=== PATIENT | female | born 1970 | race African-American/Black ===

== ENCOUNTER → 2021-02-01 11:17 | Outpatient (CLI) | payer BC, SELFPAY ==
--- NOTE | ~2021-02-01 | US_ITS ---
EXAMINATION: US transvaginal EXAM DATE: 02/01/2021 11:50 INDICATION: N94.6 - Dysmenorrhea, unspecified. TECHNIQUE: Pelvic transvaginal sonogram was performed. There are multiple grayscale and Doppler imag es available for interpretation. There is no prior study for comparison. FINDINGS: Uterus measures 8.2 x 5.7 x 7.0 cm, is retroverted and with 1.7 cm fibroid anteriorly. En dometrial stripe measures 9 mm, within normal limits. There is no free pelvic fluid. Right adnexa: The ovary measures 2.7 x 2.1 x 1.7 cm and is morphologically normal. Ovarian vascular f low confirmed. Left adnexa: The ovary measures 3.7 x 2.9 x 2.7 cm and is morphologically normal. Ovarian vascular fl ow confirmed. IMPRESSION: Small fibroid Reviewed, dictated and finalized at location B. IMPRESSION: Small fibroid
== END ==
PROVIDERS: PCP Family Medicine; Visit Provider Family Medicine
DX: N94.6 Dysmenorrhea, unspecified (principal); D25.9 Leiomyoma of uterus, unspecified
CPT/HCPCS: 76830

== ENCOUNTER → 2022-08-02 10:21 | Outpatient (CLI) | payer BC, SELFPAY ==
--- NOTE | ~2022-08-02 | MM_ITS ---
EXAMINATION: MM screening álvaro BI w luis HISTORY: Screening TECHNIQUE: Craniocaudal and mediolateral oblique 3-D tomosynthesis images were obtained and synthetic 2-D images were generated. CAD analysis was submitted and interpreted. COMPARISON: Comparison to multiple prior studies sequentially, with oldest reviewed study dated 09/24. BREAST PARENCHYMAL COMPOSITION: There are scattered areas of fibroglandular density. FINDINGS: There is no evidence of suspicious mass, calcification, or architectural distortion to sugg est malignancy in either breast. There has been no suspicious interval change. IMPRESSION: 1. No mammographic evidence of malignancy. 2. Recommend routine screening mammography in one year. BI-RADS Category 1: Negative Reviewed, dictated and finalized at location B. Y MANUFACTURING TECHNOLOGIST
== END ==
PROVIDERS: PCP Family Medicine; Visit Provider Family Medicine
DX: Z12.31 Encounter for screening mammogram for malignant neoplasm of breast (principal)
CPT/HCPCS: 77063; 77067

== ENCOUNTER 2023-06-13 10:48 | Outpatient (CLI) | payer BC, SELFPAY ==
--- NOTE | ~2023-06-13 | US_ITS ---
EXAMINATION: US transvaginal DATE: 06/13/2023 11:28 INDICATION: N94.6 - Dysmenorrhea, unspecified TECHNIQUE: Multiple transabdominal and endovaginal sonographic images of the pelvis were obtained. COMPARISON: 02/01/2021. FINDINGS: Uterus: 7.3 x 5.5 x 5.8 cm. Retroverted uterus. Heterogeneous uterine parenchyma, indistinct endometr ial margins. 1.4 cm segment focal area of heterogeneous echogenicity within uterine parenchyma, myome trial location more clearly delineated in the prior study. Endometrial complex measures 6 mm. Right Ovary: 3.2 x 3.3 x 2.5 cm. Vascular flow is present. 2.4 cm anechoic cyst with a thin avascular septum, versus 2 adjacent simple cysts. Left Ovary: 3.4 x 2.0 x 2.3 cm. Vascular flow is present. There is no free fluid in the pelvis. IMPRESSION: Heterogeneous focus in the uterine parenchyma, likely myometrial fibroid. Heterogeneous uterine parenchyma as can be seen with adenomyosis. 2.4 cm right ovarian cyst with a thin septum, versus 2 adjacent simple cysts. Consider follow-up afte r appropriate cycling. Reviewed, dictated and finalized at location K. CAL VOUCHER CLERK IMPRESSION: Heterogeneous focus in the uterine parenchyma, likely myometrial fibroid. Heterogeneous uterine parenchyma as can be seen with adenomyosis. 2.4 cm right ovarian cyst with a thin septum, versus 2 adjacent simple cysts. C onsider follow-up after appropriate cycling.
== END 2023-06-13 10:49 ==
LOC: MICIMG 10:49
PROVIDERS: PCP Family Medicine; Visit Provider Family Medicine
DX: N94.6 Dysmenorrhea, unspecified (principal); N85.2 Hypertrophy of uterus; N83.201 Unspecified ovarian cyst, right side
CPT/HCPCS: 76830

== ENCOUNTER 2023-08-22 01:13 | Day surgery (SDC) | payer BC, SELFPAY ==
[2023-08-14 10:14] VITALS: BMI 29.9
--- NOTE | 2023-08-20 10:09 | SUR.PREOP ---
Patient called regarding upcoming procedure. Voicemail left regarding appointment times.
[2023-08-22 09:40] VITALS: BP 117/81; PULSE 70; RESP 16; TEMP 36.4; O2SAT 100; BMI 30.4
[2023-08-22] MEDS: LACTATED RINGERS 1,000 ML 150 ML IV CONT (10:04)
--- NOTE | 2023-08-22 10:21 | P.PNAN_ITS ---
Anes - Initial Pre Proc Eval Procedure: Operation Date: 08/22/23 11:00 Proposed Procedures p Screening Colonoscopy - Donovan Marin MD Date/Time: 08/22/23 10:21 Surgeon: Donovan Marin MD Pre Op Diagnosis: neoplasm screening Patient Data Age: 53 Gender: F Height: 1.65 m Weight: 83 kg Last Vital Signs Temp 97.6 F 08/22/23 09:40 Pulse 70 08/22/23 09:40 Resp 16 08/22/23 09:40 BP 117/81 08/22/23 09:40 Pulse Ox 100 08/22/23 09:40 O2 Del Method Room Air 08/22/23 09:40 Allergies Allergy/AdvReac Type Severity Reaction Status Date / Time No Known Allergies Allergy Mild Verified 08/22/23 09:49 Home Medications Medication Instructions Recorded Confirmed Type amlodipine 10 mg tablet See Rx Instructions .Route 12/09/22 08/22/23 Rx .COMPLEX #90 tabs labetalol 100 mg tablet See Rx Instructions .Route 03/09/23 08/22/23 Rx .COMPLEX #270 tabs topiramate 25 mg tablet See Rx Instructions .Route 07/24/23 08/22/23 Rx .COMPLEX #90 tabs Patient hx anesthesia problems: none Family hx anesthesia problems: none Results Review: All pre-operative results and documents have been reviewed as part of the pre- operative evaluation. [facility] Past Medical History Medical History Hypertension Migraine Family History Family History Grandparent Hypertension Grandparent Hypertension Social History Social History Smoking status: Never smoker Second hand tobacco smoke exposure: No Alcohol intake: current Drinks per week: 1 Alcohol use details: DRINKS OCCASIONALLY Substance use: never Substance use type: does not use Lack of Transportation: No Lack of Food: Never True Current Housing: I Have Housing Concerned About Future Housing: No Difficulty Paying Gas/Electric Bills: No Difficulty Paying for Meds: No Currently Unemployed: No Education: Master's Degree or Higher Difficulty w/ Childcare or Family Care: No Living arrangements: with family Gender identity (if verbalized by the patient): Female Spiritual care concerns: No Agree to blood products: Yes Anes - Eval Final PreProcedure Day of Procedure 08/22/23 10:21 Patient weight: obese Heart: regular rate and rhythm Lungs: clear to auscultation Airway: Mallampati scale Neurological: alert and oriented Last oral intake: >/= 8 hours ASA classification: II Emergent: no Anesthetic plan: proceed Anesthesia type and monitoring: general GIVS and standard monitoring Results Review: All pre-operative results and documents have been reviewed as part of the pre- operative evaluation. Informed Consent: The patient's anesthetic plan and its attendant risks and benefits were discussed with the patient/family/POA. Questions were solicited and answers provided to the satisfaction of the patient/family/POA.
--- NOTE | 2023-08-22 10:43 | PM.HPGS ---
History of Present Illness History of Present Illness Consent: Risks, benefits, and alternatives have been discussed and questions answered. Patient agrees to proceed with procedure. Chief complaint: neoplasm screening Narrative: Yasmeen Plata is a 53 year old female here for first screening colonoscopy Review of Systems Review of Systems: All systems reviewed & are unremarkable except as noted in HPI and below PMFSH Past Medical History Medical History (Updated 08/22/23 @ 10:44 by Donovan Marin MD) Colon cancer screening Hypertension Migraine Family History Family History Grandparent Hypertension Grandparent Hypertension Social History Social History Smoking status: Never smoker Second hand tobacco smoke exposure: No Alcohol intake: current Drinks per week: 1 Alcohol use details: DRINKS OCCASIONALLY Substance use: never Substance use type: does not use Lack of Transportation: No Lack of Food: Never True Current Housing: I Have Housing Concerned About Future Housing: No Difficulty Paying Gas/Electric Bills: No Difficulty Paying for Meds: No Currently Unemployed: No Education: Master's Degree or Higher Difficulty w/ Childcare or Family Care: No Living arrangements: with family Gender identity (if verbalized by the patient): Female Spiritual care concerns: No Agree to blood products: Yes Meds Home Medications and Allergies Home Medications Medication Instructions Recorded Confirmed Type amlodipine 10 mg tablet See Rx Instructions .Route 12/09/22 08/22/23 Rx .COMPLEX #90 tabs labetalol 100 mg tablet See Rx Instructions .Route 03/09/23 08/22/23 Rx .COMPLEX #270 tabs topiramate 25 mg tablet See Rx Instructions .Route 07/24/23 08/22/23 Rx .COMPLEX #90 tabs Allergies Allergy/AdvReac Type Severity Reaction Status Date / Time No Known Allergies Allergy Mild Verified 08/22/23 09:49 Vital Signs Vital Signs - 24 hr 08/22/23 09:40 Temperature 97.6 F Pulse Rate 70 Respiratory Rate 16 Blood Pressure 117/81 Pulse Oximetry 100 Oxygen Delivery Room Air Exam Const: General: comfortable and no acute distress HENMT: Face/Nose/Sinus: Normal nares present Eyes: General: appearance normal, both eyes and all related structures Neck: Neck: no JVD Resp: Auscultation: clear to auscultation bilaterally Cardio: Rate: regular rate Rhythm: regular rhythm GI: Inspection: non-distended GI Palp: Yes Soft to palpation Skin: General skin exam: normal color Neuro: General: gait normal Speech: normal speech Extrem: General: normal to inspection Psych: Mental Status: mental status grossly normal Assessment and Plan Assessment and plan (1) Colon cancer screening: Code(s): Z12.11 - Encounter for screening for malignant neoplasm of colon Status: Acute Assessment and Plan: colonoscopy
[2023-08-22 11:02] VITALS: BP 100/64; PULSE 70; RESP 17; O2SAT 100
[2023-08-22 11:12] VITALS: BP 108/76; PULSE 72; RESP 19; O2SAT 100
[2023-08-22 11:22] VITALS: BP 111/79; PULSE 63; RESP 17; O2SAT 100
== END 2023-08-22 11:36 | disposition home or self-care (01) ==
PROVIDERS: PCP Family Medicine; Visit Provider Internal Medicine Gastroenterology
PROC: 0DJD8ZZ Inspection of Lower Intestinal Tract, Via Natural or Artificial Opening Endoscopic (ICD-10-PCS; CPT 45378; principal; 2023-08-22 11:00)
DX: Z12.11 Encounter for screening for malignant neoplasm of colon (principal); K57.30 Diverticulosis of large intestine without perforation or abscess without bleeding; K64.8 Other hemorrhoids; I10 Essential (primary) hypertension; E66.9 Obesity, unspecified; Z68.30 Body mass index [BMI] 30.0-30.9, adult
CPT/HCPCS: 45378; J2704; J7120

== ENCOUNTER 2023-09-26 09:52 | Outpatient (CLI) | payer BC, SELFPAY ==
--- NOTE | ~2023-09-26 | MM_ITS ---
EXAMINATION: MM screening álvaro BI w luis HISTORY: Screening mammogram TECHNIQUE: Craniocaudal and mediolateral oblique 3-D tomosynthesis images were obtained and synthetic 2-D images were generated. CAD analysis was submitted and interpreted. COMPARISON: 08/02/2022, 05/05/2019 bilateral screening mammogram examinations BREAST PARENCHYMAL COMPOSITION: There are scattered areas of fibroglandular density. FINDINGS: There is no evidence of suspicious mass, calcification, or architectural distortion to sugg est malignancy in either breast. There has been no suspicious interval change. IMPRESSION: 1. No mammographic evidence of malignancy. 2. Recommend routine screening mammography in one year. BI-RADS Category 1: Negative Reviewed, dictated and finalized at location A.
== END 2023-09-26 09:53 ==
LOC: MICIMG 09:54
PROVIDERS: PCP Family Medicine; Visit Provider Family Medicine
DX: Z12.31 Encounter for screening mammogram for malignant neoplasm of breast (principal)
CPT/HCPCS: 77063; 77067

== ENCOUNTER 2023-10-15 09:46 | Outpatient (CLI) | payer BC, SELFPAY ==
--- NOTE | ~2023-10-15 | US_ITS ---
Pelvic ultrasound. Clinical History: Leiomyoma of uterus Technique: Realtime transabdominal and transvaginal scanning of the pelvis was performed. Color flow Doppler and Doppler spectral analysis were performed. Findings: The uterus is retroverted, measures 9.4 x 5.8 x 7.2 cm. The endometrial stripe has a thick ness of 4 mm. Posterior wall intramural fibroid measures 2.4 cm in diameter. Additional intradural fi broid measures 2 cm in maximum diameter.. The right ovary measures 3.3 x 2.0 x 3.5 cm. No significant right ovarian or adnexal mass is seen. The left ovary measures 3.1 x 2.0 x 3.5 cm. No significant left ovarian or adnexal mass is seen. There is no evidence of free fluid in the cul de sac. Impression: Uterine fibroids, as above. Reviewed, dictated and finalized at [facility]. Impression: Uterine fibroids, as above.
== END 2023-10-15 09:47 ==
LOC: MICIMG 09:47
PROVIDERS: PCP Family Medicine; Visit Provider Physician Assistant Medical
DX: D25.9 Leiomyoma of uterus, unspecified (principal)
CPT/HCPCS: 76830

== ENCOUNTER 2024-02-06 13:24 | Outpatient (CLI) | payer BC, SELFPAY ==
--- NOTE | ~2024-02-06 | XR_ITS ---
EXAMINATION: XR ankle RT min 3V DATE: 02/06/2024 13:38 INDICATION: Lateral right ankle pain. TECHNIQUE: 4 views of right ankle were obtained. COMPARISON: None. FINDINGS: Alignment is normal. No fracture. Joint spaces are normal. There are enthesophytes at the p osterior and plantar aspects of calcaneal tuberosity. IMPRESSION: 1. No fracture. Reviewed, dictated and finalized at location A. IMPRESSION: 1. No fracture.
== END 2024-02-06 13:25 | disposition home or self-care (01) ==
PROVIDERS: PCP Family Medicine; Visit Provider Family Medicine
DX: M25.571 Pain in right ankle and joints of right foot (principal)
CPT/HCPCS: 73610

== ENCOUNTER 2025-04-12 11:27 | Outpatient (CLI) | payer BC, SELFPAY ==
--- NOTE | ~2025-04-12 | MM_ITS ---
EXAMINATION: MM screening álvaro BI w luis HISTORY: Screening TECHNIQUE: Craniocaudal and mediolateral oblique 3-D tomosynthesis images were obtained and synthetic 2-D images were generated. CAD analysis was submitted and interpreted. COMPARISON: Comparison to multiple prior studies sequentially, with oldest reviewed study dated 01/16/2017. BREAST PARENCHYMAL COMPOSITION: Not dense: There are scattered areas of fibroglandular density. FINDINGS: There is no evidence of suspicious mass, calcification, or architectural distortion to suggest malignancy in either breast. There has been no suspicious interval change. IMPRESSION: 1. No mammographic evidence of malignancy. 2. Recommend routine screening mammography in one year. BI-RADS Category 1: Negative Reviewed, dictated and finalized at location B. TER'S DEVIL
== END 2025-04-12 11:28 | disposition home or self-care (01) ==
LOC: MICIMG 11:28
PROVIDERS: PCP Student in an Organized Health Care Education/Training Program; Visit Provider Family Medicine
DX: Z12.31 Encounter for screening mammogram for malignant neoplasm of breast (principal)
CPT/HCPCS: 77063; 77067

== ENCOUNTER 2025-05-20 12:07 | Outpatient (CLI) | payer BC, SELFPAY ==
--- OUTSIDE RECORDS SUMMARY | 2025-05-20 12:11 | XMS_ITS | Clinical Summary ---
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 Gender Identity Not on file Sexual Orientation Not on file Plan of Treatment Health Maintenance Due Date Last Done Comments DTAP/TDAP/TD VACCINES (1 - Tdap) 08/17/1991 HEPATITIS B VACCINES (1 of 3 - 19+ 3-dose series) 07/31 HPV/Cotest (21-29) 1993 CERVICAL CANCER SCREENING 2002 HPV/Cotest (30-65) 2002 PAP SMEAR 2002 BREAST CANCER SCREENING 2012 COLORECTAL SCREENING 2017 Colorectal Cancer Screening 2017 FIT-DNA Q 3 years 2017 FIT/FOBT Q 1 year 2017 Flex Sig/CT Colonography Q 5 years 2017 ZOSTER VACCINE (1 of 2) 2022 INFLUENZA VACCINE (#1) 2024 Insurance [employer] BLUE ACCESS/TRUE BLUE PPO Care Teams Perioperative Nurse Relationship Specialty Start Date End Date Kari Ardon MD [address] [place] [id number] PCP - General Family Practice 08/17/14
--- OUTSIDE RECORDS SUMMARY | 2025-05-20 12:11 | XMS_ITS | Clinical Summary ---
Author Organization [facility] [employer] [facility] Address [address] [place] [address] Care Team Providers Care Rail Filler Name Role Phone Unavailable Primary Care Provider Unavailabl e Social History Tobacco Use Types Packs/Day Years Used Date Smoking Tobacco: Never Assessed Comments Unknown Sex and Gender Information Value Date Recorded Sex Assigned at Not on file Legal Sex Female 11:36 AM EDT Gender Identity Not on file Sexual Orientation Not on file Plan of Treatment Not on file Medical Devices Not on file
[2025-05-20 12:58] LABS: Beta HCG Quantitative 5.92 mIU/ML
== END 2025-05-20 12:08 | disposition home or self-care (01) ==
LOC: ANHLAB 12:09
PROVIDERS: Visit Provider Student in an Organized Health Care Education/Training Program
DX: R79.89 Other specified abnormal findings of blood chemistry (principal)
CPT/HCPCS: 36415; 84702